=== PATIENT | female | born 1955 | race Caucasian/White ===

== ENCOUNTER → 2018-05-24 08:27 | Outpatient (CLI) | payer OTHER, SELFPAY ==
[2018-05-24 09:12] LABS: Add Manual Diff / Slide Review NO; Basophils Percent Auto 0.7 % (0-2); Eosinophils Percent Auto 2.1 % (2-4); Hematocrit 41.7 % (36-46); Lymphocytes Percent Auto 43.9 % (25-40); Mean Corpuscular HGB Conc 33.6 % (30-36); Mean Corpuscular Hemoglobin 31.5 PG (26-34); Mean Corpuscular Volume 93.8 fL (80-100); Neutrophils Absolute Auto 2100 /uL (3000-5900); Neutrophils Percent Auto 45.3 % (50-75); Platelet Count 286 X10^3/uL (150-400); Red Blood Cell Count 4.45 X10^6/uL (4.0-5.2); Red Cell Distribution Width 13.3 % (11.6-14.8); White Blood Cell Count 4.6 X10^3/uL (4.5-11.0)
[2018-05-24 09:29] LABS: Alanine Aminotransferase 27 IU/L (9-52); Albumin 4.6 g/dL (3.5-5.0); Albumin Globulin Ratio 1.4 (1.0-2.8); Alkaline Phosphatase 61 U/L (38-126); Aspartate Aminotransferase 29 IU/L (14-36); BUN Creatinine Ratio 16.7 (6-22); Bilirubin Total 0.9 mg/dL (0.2-1.3); Blood Urea Nitrogen 15 mg/dL (7-17); Calcium 9.5 mg/dL (8.4-10.2); Carbon Dioxide 30 mmol/L (22-32); Chloride 103 mmol/L (98-107); Cholesterol 222 mg/dL (140-199); Estimated Glomerular Filt Rate > 60.0 mL/min (>60); Globulin 3.3 g/dL (1.7-4.1); Glucose 89 mg/dL (80-110); HDL Cholesterol 85 mg/dL (40-60); HEMOLYSIS < 15 (0-50); LDL Cholesterol Calculated 119 mg/dL (<100); Potassium 5.1 mmol/L (3.4-5.1); Sodium 143 mmol/L (137-145); Total Protein 7.9 g/dL (6.3-8.2); Triglycerides 88 mg/dL (35-150)
[2018-05-24 10:19] LABS: Thyroid Stimulating Hormone 0.69 uIU/mL (0.47-4.68)
== END ==
PROVIDERS: Visit Provider Family Medicine
DX: Z00.00 Encounter for general adult medical examination without abnormal findings (principal); Z51.81 Encounter for therapeutic drug level monitoring
CPT/HCPCS: 36415; 80053; 80061; 84443; 85025

== ENCOUNTER → 2019-01-08 14:08 | Outpatient (CLI) | payer OTHER, SELFPAY | PROVIDERS: Visit Provider Internal Medicine | DX: R29.890 Loss of height (principal); Z78.0 Asymptomatic menopausal state; Z82.62 Family history of osteoporosis | CPT/HCPCS: 77080 ==

== ENCOUNTER → 2019-07-02 08:40 | Outpatient (CLI) | payer OTHER, SELFPAY ==
[2019-07-02 10:28] LABS: BUN Creatinine Ratio 21.3 (6-22); Blood Urea Nitrogen 17 mg/dL (7-17); Calcium 9.8 mg/dL (8.4-10.2); Carbon Dioxide 28 mmol/L (22-32); Chloride 103 mmol/L (98-107); Cholesterol 240 mg/dL (140-199); Estimated Glomerular Filt Rate > 60.0 mL/min (>60); Glucose 89 mg/dL (80-110); HDL Cholesterol 92 mg/dL (40-60); HEMOLYSIS < 15 (0-50); LDL Cholesterol Calculated 133 mg/dL (<100); Potassium 4.4 mmol/L (3.4-5.1); Sodium 139 mmol/L (137-145); Triglycerides 76 mg/dL (35-150)
[2019-07-02 10:46] LABS: Vitamin D 25 Hydroxy (D3) 33.1 ng/mL (30.0-100.0)
== END ==
PROVIDERS: Visit Provider Internal Medicine
DX: Z00.00 Encounter for general adult medical examination without abnormal findings (principal)
CPT/HCPCS: 36415; 80048; 80061; 82306

== ENCOUNTER → 2020-05-20 14:38 | Outpatient (CLI) | payer OTHER, SELFPAY ==
--- NOTE | 2020-05-20 14:43 | DI.RAD.S_ITS ---
PROCEDURE: XR LUMBAR SPINE MIN 4V INDICATIONS: lbp TECHNIQUE: 5 views of the lumbar spine were acquired. COMPARISON: [facility], CR, XR THORACIC SPINE 3V, 05/20/2020, 14:43. FINDINGS: Bones: 5 nonrib-bearing vertebrae are present. There is levo scoliotic bony alignment centered at the thoracolumbar junction, which currently measures 32.1 degrees and had measured 40.6 degrees during the analysis of the thoracolumbar sacral spine.. No vertebral body compression fractures. No suspicious bony lesions. Soft tissues: Overlying bowel gas pattern is normal. No suspicious soft tissue calcifications. Oblique images: No pars defects. IMPRESSION: Convex leftward scoliosis measures 32.1 degrees at time of this scanning. There is a moderate degree of degenerative disc disease extending through the entire lumbosacral spine with disc height reduction, and facet osteoarthritis that becomes progressively more prominent from L1 through S1, and is most pronounced at L4-5 and L5-S1. Significant spinal and foraminal stenosis likely is present from the middle through the lower thirds of the lumbosacral spine. Dictated by: Carlos Romero M.D. on 05/20/2020 at 15:27 Approved by: Carlos Romero M.D. on 05/20/2020 at 15:29
--- NOTE | 2020-05-20 14:43 | DI.RAD.S_ITS ---
PROCEDURE: XR THORACIC SPINE 3V INDICATIONS: lbp TECHNIQUE: 3 views of the thoracic spine were acquired. COMPARISON: [facility], CR, XR LUMBAR SPINE MIN 4V, 05/20/2020, 14:43. FINDINGS: Bones: No fractures or dislocations. Note is made of prominent convex leftward scoliosis centered at the thoracolumbar junction junction. Compensatory convex rightward scoliosis is less pronounced and centered at the middle 3rd of the thoracic spine. No suspicious bony lesions. Twelve pairs of ribs are noted, and appear intact where visualized. Convex leftward scoliosis at the thoracolumbar junction measures 40.6 degrees and convex rightward scoliosis at the middle 3rd of the thoracic spine measures 35.1 degrees Soft tissues: No paravertebral stripe thickening. IMPRESSION: Prominent scoliosis involving the thoracic and lumbosacral spine, most pronounced at the thoracolumbar junction. No acute trauma found. Dictated by: Carlos Romero M.D. on 05/20/2020 at 15:25 Approved by: Carlos Romero M.D. on 05/20/2020 at 15:27
== END ==
PROVIDERS: PCP Internal Medicine; Referring Provider Physical Medicine & Rehabilitation; Visit Provider Physical Medicine & Rehabilitation
DX: M51.26 Other intervertebral disc displacement, lumbar region (principal); M41.85 Other forms of scoliosis, thoracolumbar region; M51.36 Other intervertebral disc degeneration, lumbar region; M47.816 Spondylosis without myelopathy or radiculopathy, lumbar region; M47.817 Spondylosis without myelopathy or radiculopathy, lumbosacral region; M48.061 Spinal stenosis, lumbar region without neurogenic claudication; M48.07 Spinal stenosis, lumbosacral region
CPT/HCPCS: 72072; 72110

== ENCOUNTER → 2020-07-08 12:19 | Outpatient (CLI) | payer OTHER, SELFPAY ==
--- NOTE | 2020-07-08 12:21 | DI.MRI.S_ITS ---
PROCEDURE: MR LUMBAR SPINE WO CON INDICATIONS: scoliosis with radic TECHNIQUE: Noncontrast sagittal T1 spin echo and T2 fast echo, sagittal STIR, axial T1 and T2 fast spin echo through the lumbar spine. In cases with scoliosis, additional coronal T2 fast spin echo may be performed. COMPARISON: Outside Facility, RG, XR SCOLIO STUDY, 01/13/2012, 9:42. [facility], CR, XR LUMBAR SPINE MIN 4V, 05/20/2020, 14:43. [facility], MR, MR THORACIC SPINE WO CON, 07/08/2020, 12:54. [facility], MR, MR CERVICAL SPINE WO CON, 07/08/2020, 12:31. FINDINGS: Image quality: This examination is limited by involuntary motion artifact. Alignment and Curvature: There is moderate levoconvex thoracolumbar scoliosis seen. Bone Marrow: Marrow is of normal overall signal. No acute vertebral body compression fractures. Spinal Cord: Conus medullaris terminates at the L1 level. Visualized cord demonstrates normal signal and size. Paraspinous Soft Tissues: No paravertebral masses. T12-L1: Moderate loss of disc height is seen. Loss of disc signal is seen. Mild generalized disc bulge is seen. There is [id number] right-sided and minimal left-sided neural foraminal narrowing seen. No significant central canal narrowing is seen. L1-L2: Moderate loss of disc height is seen. Loss of disc signal is seen. Bridging endplate osteophytes are seen. Mild generalized disc bulge is seen. There is [id number] right-sided and minimal left-sided neural foraminal narrowing seen. The central canal is widely patent. L2-L3: Moderate to severe loss of disc height and disc signal is seen, which is more prominent on the right side than on the left. Mild facet joint hypertrophy is seen. Reactive marrow endplate changes are seen, which are hyperintense on T1-weighted and T2-weighted imaging and most consistent with fatty metaplasia (Modic type II changes). Bridging endplate osteophytes are seen. There is moderate left-sided and at least moderate right-sided neural foraminal narrowing seen. Mild central canal narrowing is seen. L3-L4: At least moderate loss of disc height and disc signal can be seen on the right side. Moderate generalized disc bulge is seen. Moderate to prominent facet hypertrophy is seen at this level. Moderate bilateral neural foraminal narrowing can be seen, left worse than right. Moderate central canal narrowing is seen. L4-L5: Moderate loss of disc height is seen. Loss of disc signal is seen. Mild to moderate disc bulge is seen. Moderate to prominent facet hypertrophy can be seen. There is moderate right-sided and moderate to severe left-sided neural foraminal narrowing seen. There is a mild degree of compression seen upon the exiting left L4 nerve root. Minimal central canal narrowing is seen. L5-S1: Moderate to severe loss of disc height and disc signal can be seen. Moderate disc bulge is seen, which is eccentric to the left side. Bridging endplate osteophytes are seen on the left. At least moderate facet hypertrophy is seen. There is moderate to severe left-sided neural foraminal narrowing, with associated mass effect upon the exiting left L5 nerve root. There is mild right-sided neural foraminal narrowing seen. No significant central canal narrowing is seen. IMPRESSION: Levoconvex thoracolumbar scoliosis with multiple levels of degenerative change. Dictated by: Raymundo London M.D. on 07/08/2020 at 14:59 Approved by: Raymundo London M.D. on 07/08/2020 at 15:05
--- NOTE | 2020-07-08 12:21 | DI.MRI.S_ITS ---
PROCEDURE: MR CERVICAL SPINE WO CON INDICATIONS: scoliosis with radic TECHNIQUE: Noncontrast sagittal T1 spin echo and T2 fast spin echo, sagittal STIR, foraminal oblique sagittal T2 fast spin echo, and axial gradient echo or T2 fast spin echo through the cervical spine. COMPARISON: None. FINDINGS: Image quality: Excellent. Alignment and Curvature: There is normal bony alignment. Bone Marrow: Marrow demonstrates normal overall signal. Spinal Cord: Visualized spinal cord has normal size and signal. No cerebellar tonsillar herniation. Paraspinous Soft Tissues: No paravertebral masses. Prevertebral soft tissues are normal in thickness. C2-C3: Normal appearance. C3-C4: Normal appearance. C4-C5: Slight loss of disc signal. Minimal, diffuse disc bulge. No central stenosis. No neural foraminal narrowing. No neural compression. C5-C6: Loss of disc signal and height. Mild, diffuse disc bulge. Mild narrowing of the central canal. No neural foraminal narrowing. No neural compression. C6-C7: Loss of disc signal and height. Mild, diffuse disc bulge. Mild narrowing of the central canal. No neural foraminal narrowing. No neural compression. C7-T1: Normal appearance. IMPRESSION: 1. Multilevel degenerative disease. 2. No significant central canal narrowing. 3. No neural foraminal narrowing. 4. No neural compression. Dictated by: Bianca Melendrez MD, PhD on 07/08/2020 at 14:46 Approved by: Bianca Melendrez MD, PhD on 07/08/2020 at 15:16
--- NOTE | 2020-07-08 12:21 | DI.MRI.S_ITS ---
PROCEDURE: MR THORACIC SPINE WO CON INDICATIONS: scoliosis with radic TECHNIQUE: Noncontrast sagittal T1 spine echo and T2 fast spin echo, sagittal STIR, axial T1 and T2 fast spin echo through the thoracic spine. COMPARISON: None. FINDINGS: Image quality: Excellent. Alignment and Curvature: There is 33 degree convex rightward scoliotic bony alignment, centered at the middle 3rd of the thoracic spine. There is compensatory convex leftward scoliosis centered at the area near the cervical thoracic junction and also the lumbosacral junction. The thoracic cord deviates leftward and rightward, respectively, within the thecal sac but no area significant spinal stenosis is associated. Bone Marrow: Marrow is of normal overall signal. No acute vertebral body compression fractures. Spinal Cord: Visualized spinal cord is normal in size and signal. Note is made of mild degenerative disc disease along the in word margin of the curvature at the areas of dextroscoliosis and levoscoliosis. Obstructive osseous hypertrophy is not associated. Facet osteoarthritis also appears similarly greater along the inner curvature of the mid thoracic spine and the inner curvature associated with the convex leftward scoliosis above and below Paraspinous Soft Tissues: No paravertebral masses. Miscellaneous: On axial images, central canal and foramina appear widely patent at all scanned levels. IMPRESSION: A disc herniation is not found. There is relatively prominent dextroscoliosis centered at the middle 3rd of the thoracic spine with compensatory levoscoliosis above and below. Expected deviation of the cervical cord within the thecal sac is present as a result. At additionally, inner curvature degenerative disc disease and facet osteoarthritis is present to a mild degree as a result. No definite spinal stenosis, probable mild foraminal stenosis is seen along the inner curvature in the areas dextroscoliosis and levoscoliosis. Dictated by: Carlos Romero M.D. on 07/08/2020 at 13:41 Approved by: Carlos Romero M.D. on 07/08/2020 at 13:45
== END ==
PROVIDERS: PCP Internal Medicine; Referring Provider Physical Medicine & Rehabilitation; Visit Provider Physical Medicine & Rehabilitation
DX: M50.122 Cervical disc disorder at C5-C6 level with radiculopathy (principal); M51.14 Intervertebral disc disorders with radiculopathy, thoracic region; M47.24 Other spondylosis with radiculopathy, thoracic region; M51.15 Intervertebral disc disorders with radiculopathy, thoracolumbar region; M51.16 Intervertebral disc disorders with radiculopathy, lumbar region; M41.85 Other forms of scoliosis, thoracolumbar region
CPT/HCPCS: 72141; 72146; 72148

== ENCOUNTER → 2020-09-17 09:15 | Outpatient (CLI) | payer OTHER, SELFPAY ==
[2020-09-17 12:54] LABS: Alanine Aminotransferase 22 IU/L (<35); Albumin 4.3 g/dL (3.5-5.0); Alkaline Phosphatase 74 U/L (38-126); Aspartate Aminotransferase 32 IU/L (14-36); BUN Creatinine Ratio 15.9 (6-22); Bilirubin Total 0.8 mg/dL (0.2-1.3); Blood Urea Nitrogen 13 mg/dL (7-17); Calcium 9.7 mg/dL (8.4-10.2); Carbon Dioxide 29 mmol/L (22-32); Chloride 103 mmol/L (98-107); Estimated Glomerular Filt Rate > 60.0 mL/min (>60); Globulin 3.3 g/dL (1.7-4.1); Glucose 97 mg/dL (80-110); Potassium 4.3 mmol/L (3.4-5.1); Sodium 137 mmol/L (137-145); Total Protein 7.6 g/dL (6.3-8.2)
[2020-09-17 12:55] LABS: Albumin Globulin Ratio 1.3 (1.0-2.8); Cholesterol 218 mg/dL (140-199); HDL Cholesterol 87 mg/dL (40-60); HEMOLYSIS < 15 (0-50); LDL Cholesterol Calculated 115 mg/dL (<100); Triglycerides 78 mg/dL (35-150)
== END ==
PROVIDERS: PCP Internal Medicine; Referring Provider Internal Medicine; Visit Provider Internal Medicine
DX: Z00.00 Encounter for general adult medical examination without abnormal findings (principal); E78.5 Hyperlipidemia, unspecified
CPT/HCPCS: 36415; 80053; 80061

== ENCOUNTER → 2020-11-02 15:49 | Outpatient (CLI) | payer OTHER, SELFPAY ==
[2020-11-02 18:12] LABS: COVID19 -Nasal RAPID Negative (Negative)
== END ==
PROVIDERS: PCP Internal Medicine; Visit Provider Physical Medicine & Rehabilitation
DX: Z20.822 Contact with and (suspected) exposure to COVID-19 (principal)
CPT/HCPCS: 87635; C9803

== ENCOUNTER 2020-11-03 10:37 | Outpatient (CLI) | payer OTHER, SELFPAY ==
[2020-11-03] VITALS (10 sets, daily range): BP systolic 108–149; BP diastolic 58–82; PULSE 45–60; RESP 11–22; TEMP 36.2; O2SAT 98–100
--- NOTE | 2020-11-03 10:39 | DI.RAD.S_ITS ---
PROCEDURE: PAIN L/S TRANSFORAMINAL INJECT INDICATIONS: SPONDYLOSIS COMPARISON: [facility], MR, MR LUMBAR SPINE WO CON, 07/08/2020, 13:25. FINDINGS: Fluoroscopic spot filming was performed to verify placement of a spinal needle at the L3-L4 level, as labeled on the films. Appropriate location of the needle tip was confirmed by injection of iodinated contrast. IMPRESSION: Intraprocedural examination within normal limits. Dictated by: Raymundo London M.D. on 11/03/2020 at 11:09 Approved by: Raymundo London M.D. on 11/03/2020 at 11:10
--- NOTE | 2020-11-03 11:17 | DI.RAD.S_ITS ---
PROCEDURE: XR KNEE LT 3V INDICATIONS: Left knee DJD. TECHNIQUE: 3 views of the knee were acquired. COMPARISON: None. FINDINGS: Bones: No fractures or dislocations. No suspicious bony lesions. Ligament anchors within the distal femur and proximal tibia are present. Moderate tricompartmental periarticular osteophyte formation. Soft tissues: No joint effusion. No suspicious soft tissue calcifications. IMPRESSION: 1. Postsurgical sequelae. 2. Osteoarthritis. 3. No acute fracture. No osseous lesion. If symptoms and/or clinical suspicion for pathology persist, further assessment with repeat, or advanced imaging (e.g., CT, MRI, or bone scan) may be helpful for further assessment. Dictated by: Pj Romo M.D. on 11/03/2020 at 16:33 Approved by: Pj Romo M.D. on 11/03/2020 at 16:33
[2020-11-03] MEDS: MIDAZOLAM 5 MG/5 ML VIAL IV (11:18)
[2020-11-03] MEDS: DEXAMETHASONE 10 MG/ML VIAL 20 MG INJ (11:22)
[2020-11-03] MEDS: BETAMETHASONE 30 MG/5 ML MDV 6 MG INJ (11:22)
[2020-11-03] MEDS: BUPIVACAINE 0.25% (PF) VIAL 2 ML INJ (11:22)
[2020-11-03] MEDS: IOPAMIDOL 15 ML VIAL 3 ML INJ (11:22)
[2020-11-03] MEDS: fentaNYL 100 MCG/2 ML INJ 50 MCG IV (11:24)
--- NOTE | 2020-11-03 12:11 | PC.NURSE ---
Patient felt steady on feet able to take few steps, left knee xray done.
--- NOTE | 2020-11-10 09:50 | P.PCN_ITS ---
Date/Time/Diagnoses Date of procedure: 11/03/20 Time of procedure: 11:30 Pre-procedure diagnosis: 1. FORAMINAL STENOSIS WITH LE SYMPTOMS Post-procedure diagnosis: same Procedure Notes Procedure: 1. FLUOROSCOPICALLY GUIDED CONTRAST CONTROLLED TRANSFORAMINAL EPIDURAL STEROID INJECTION - LEFT L3/4 TFESI Indications: Felicity is referred by Dr. Gomez for treatment of Foraminal Stenosis with left LE Symptoms Physician: Sandro Valenzuela Total Fluoroscopy time (seconds): 8 Total sedation minutes: 10 Complications: none Procedure in detail & Post-procedure care: FINDINGS Foraminal Nerve Root Compression secondary to disc disease and facet hypertrophy DESCRIPTION OF PROCEDURE Following review of allergy and review of potential side effects and complications, including, but not necessarily limited to, infection, allergic reaction, local tissue breakdown, stroke, temporary or permanent nerve injury, paralysis, and possible , the patient indicated that the patient understood and agreed to proceed. An informed consent document was signed by the patient, witnessed by a nurse, and placed in the patient's chart. Additionally, other treatment options including medications, modalities, and physical therapy were reviewed with the patient. After review of previous anaesthesic history and IV conscious sedation the patient was deemed safe to proceed with today?s procedure with IV conscious sedation as ASA class II designation. Safety time-out was performed to confirm patient ID, procedure to be performed and site of procedure. IV sedation was accomplished with a combination of 2mg of Versed and 50mcg of Fentanyl was administered by the RN after DO order, titrated to patient comfort during the course of the procedure while the patient remained responsive to all verbal commands In the prone position following sterile prep and drape of the lumbar region, the left L3/4 posterior neuroforamen was identified fluoroscopically. The skin was anesthetized via a 25-gauge 1.5-inch needle with 1% lidocaine solution. At this point, a 25-gauge 3.5-inch spinal needle was atraumatically introduced and advanced under fluoroscopic guidance through the posterior left L3/4 neurofora men to approximately the anterior aspect of the canal. Depth was confirmed on lateral view. Following negative aspiration, injection of approximately 1.5 cc of Isovue 200 under live fluoroscopy in the AP view confirmed excellent flow along the nerve root, into the epidural space without vascular or intrathecal uptake observed Radiological data, including multiple fluoroscopic views of the lumbosacral spine, reveal a spinal needle at the left L3/4 posterior neuroforamen. Subsequent views show flow of contrast material flowing superiorly and inferiorly along the nerve root confirming epidural flow. Subsequently, a test dose of 1.5cc of 1% lidocaine solution was administered and patient was observed for two minutes for signs or symptoms of complications, including abdominal pain, shortness of breath, bilateral upper or lower extremity weakness, nausea and vomiting, prior to steroid injection. At this point, a total of 3cc or 20mg of dexamethasone and 6mg betamethasone was inject ed without incident. The patient tolerated the procedure well without signs or symptoms of complications prior to transfer to the recovery area continued monitoring without incident. The patient was then transferred to the recovery area where they were observed for an appropriate time after the injection. The patient reported a VAS score of 7 prior to the procedure and a post-procedure VAS of 0. POST OP INSTRUCTIONS The patient was provided a Pain Log to continue to record their response to the target-specific procedure prior to follow-up visit with their referring physician. Additionally, specific post-injection care instructions and a contact number to our office were provided if concerns arise regarding possible complications associated with the procedure are suspected.
== END 2020-11-03 12:12 | disposition home or self-care (01) ==
PROVIDERS: PCP Internal Medicine; Referring Provider Physical Medicine & Rehabilitation; Visit Provider Physical Medicine & Rehabilitation
DX: M48.061 Spinal stenosis, lumbar region without neurogenic claudication (principal); M51.16 Intervertebral disc disorders with radiculopathy, lumbar region
CPT/HCPCS: 64483; 73562; 99152; J0702; J1100; J2250; J3010

== ENCOUNTER → 2021-02-02 09:30 | Outpatient (CLI) | payer OTHER, SELFPAY ==
[2021-02-02 13:31] LABS: COVID19 -Nasal RAPID Negative (Negative)
== END ==
PROVIDERS: PCP Internal Medicine; Visit Provider Physical Medicine & Rehabilitation
DX: Z20.822 Contact with and (suspected) exposure to COVID-19 (principal)
CPT/HCPCS: 87635; C9803

== ENCOUNTER 2021-02-04 13:00 | Outpatient (CLI) | payer OTHER, SELFPAY ==
--- NOTE | 2021-02-04 13:01 | DI.RAD.S_ITS ---
PROCEDURE: PAIN L INTERLAMINAR/CAUDAL INJ INDICATIONS: SPONDYLOSIS COMPARISON: None. FINDINGS: Fluoroscopic spot filming was performed to verify placement of spinal needles at the L3-L4 level(s), as labeled on the films. Appropriate location(s) of the needle tip(s) was confirmed by injection of iodinated contrast. Dictated by: Holger Perez M.D. on 02/04/2021 at 14:52 Approved by: Holger Perez M.D. on 02/04/2021 at 14:52
[2021-02-04 13:13] VITALS: BP 131/73; PULSE 67; RESP 16; TEMP 36.6; O2SAT 100
[2021-02-04 13:50] VITALS: BP 148/70; PULSE 54; RESP 12; O2SAT 100
[2021-02-04] MEDS: MIDAZOLAM 5 MG/5 ML VIAL IV (13:50)
[2021-02-04] MEDS: DEXAMETHASONE 10 MG/ML VIAL 20 MG INJ (13:52)
[2021-02-04] MEDS: BETAMETHASONE 30 MG/5 ML MDV 6 MG INJ (13:53)
[2021-02-04] MEDS: IOPAMIDOL 15 ML VIAL 3 ML INJ (13:53)
[2021-02-04] MEDS: BUPIVACAINE 0.25% (PF) VIAL 30 ML INJ (13:54)
[2021-02-04 13:55] VITALS: BP 122/66; PULSE 52; RESP 10; O2SAT 100
--- NOTE | 2021-02-04 14:02 | P.PCN_ITS ---
Date/Time/Diagnoses Date of procedure: 02/04/21 Time of procedure: 14:02 Pre-procedure diagnosis: 1. HNP WITH RADICULAR FEATURES, 2. MULTILEVEL CENTRAL STENOSIS, Post-procedure diagnosis: same Procedure Notes Procedure: 1. FLUOROSCOPICALLY GUIDED CONTRAST CONTROLLED INTERLAMINAR EPIDURAL STEROID INJECTION - L3/4 Indications: Felicity is referred by Dr. Gomez for treatment of Bilateral Foraminal Stenosis L>R LE symptoms. Physician: Sandro Valenzuela Total Fluoroscopy time (seconds): 7 Total sedation minutes: 7 Complications: none Procedure in detail & Post-procedure care: FINDINGS Multilevel Central Spinal Stenosis with Nerve Root Compression DESCRIPTION OF PROCEDURE Fluoroscopically guided, contrast-controlled L3/4 translaminar epidural steroid injection. Following review of allergy and review of potential side effects and complications, including, but not necessarily limited to, infection, allergic reaction, local tissue breakdown, temporary as well as permanent nerve injury, paralysis, stroke and possible , the patient indicated that the patient understood and agreed to proceed. An informed consent document was signed by the patient, witnessed by a nurse, and placed in the patient's chart. Additionally, other treatment options including modalities, medications, and physical therapy were reviewed with the patient. After review of previous anaesthesic history and IV conscious sedation the patient was deemed safe to proceed with today?s procedure with IV conscious sedation as ASA class II designation. Safety time-out was performed to confirm patient ID, procedure to be performed and site of procedure. IV sedation was accomplished with a combination of 2mg of Versed was administered by the RN after DO order, titrated to patient comfort during the course of the procedure while the patient remained responsive to all verbal commands. In the prone position, following sterile prep and drape of the lumbar region, the L3/4 translaminar space was identified fluoroscopically. The skin was anesthetized via a 25-gauge, 1.5-inch needle with 1% lidocaine solution. At this point, a 22-gauge short bevel spinal needle was atraumatically introduced and advanced under fluoroscopic guidance into the region of the L3/4 translaminar space. Depth was confirmed on lateral view. Radiological data, including multiple fluoroscopic views of the lumbar spine, reveal a spinal needle at the L3/4 translaminar space. Lateral views then show placement of the needle in the epidural space. Subsequent views show contrast material flowing superiorly and inferiorly in the epidural space. No vascular or intrathecal uptake is observed. At this point, using loss of resistance technique with saline and air, the epidural space was entered. This was confirmed following negative aspiration with injection of approximately 1.5 cc of Isovue 200, showing excellent epidural flow without vascular or intrathecal uptake. At this point, 1cc of 1% lidocaine solution combined with 3cc or 20mg of dexamethasone and 6mg of betamethasone was injected without incident. The patient tolerated the procedure well without signs or symptoms of complications prior to transfer to the recovery area continued monitoring without incident. The patient was then transferred to the recovery area where they were observed for an appropriate period of time after the injection. The patient reported a VAS score of 6 prior to the procedure and a post- procedure VAS of 0. POST OP INSTRUCTIONS The patient was provided a Pain Log to continue to record their response to the target-specific procedure prior to follow-up visit with their referring physician. Additionally, specific post-injection care instructions and a contact number to our office were provided if concerns arise regarding possible complications associated with the procedure are suspected.
[2021-02-04 14:05] VITALS: BP 126/59; PULSE 52; RESP 16; O2SAT 95
[2021-02-04 14:10] VITALS: BP 132/63; PULSE 53; RESP 16; O2SAT 100
[2021-02-04 14:15] VITALS: BP 124/67; PULSE 55; RESP 16; O2SAT 100
== END 2021-02-04 14:17 | disposition home or self-care (01) ==
LOC: RAD 13:01
PROVIDERS: PCP Internal Medicine; Referring Provider Physical Medicine & Rehabilitation; Visit Provider Physical Medicine & Rehabilitation
DX: M51.16 Intervertebral disc disorders with radiculopathy, lumbar region (principal); M48.061 Spinal stenosis, lumbar region without neurogenic claudication
CPT/HCPCS: 62323; J0702; J1100; J2250

== ENCOUNTER → 2021-05-11 09:45 | Outpatient (CLI) | payer OTHER, SELFPAY ==
[2021-05-11 12:06] LABS: COVID19 -Nasal RAPID Negative (Negative)
== END ==
PROVIDERS: PCP Internal Medicine; Visit Provider Physical Medicine & Rehabilitation
DX: Z20.822 Contact with and (suspected) exposure to COVID-19 (principal)
CPT/HCPCS: 87635; C9803

== ENCOUNTER 2021-05-13 09:18 | Outpatient (CLI) | payer OTHER, SELFPAY ==
[2021-05-13] VITALS (7 sets, daily range): BP systolic 111–140; BP diastolic 61–75; PULSE 54–60; RESP 10–20; TEMP 36.3–36.5; O2SAT 93–100
--- NOTE | 2021-05-13 09:19 | DI.RAD.S_ITS ---
PROCEDURE: PAIN L/SI FACET INJ/BLK 1STL INDICATIONS: SPONDYLOSIS COMPARISON: None. FINDINGS: Fluoroscopic spot filming was performed to verify placement of spinal needles at the left side of L3-4, L4-5 and L5-S1 level(s), as labeled on the films. Appropriate location(s) of the needle tip(s) was confirmed by injection of iodinated contrast. IMPRESSION: Fluoro guidance was provided intraoperatively for left-sided L3-4 through L5-S1 facet injection performed by the ordering physician. Dictated by: Bautista Pal M.D. on 05/13/2021 at 10:50 Approved by: Bautista Pal M.D. on 05/13/2021 at 10:56
[2021-05-13] MEDS: MIDAZOLAM 5 MG/5 ML VIAL IV (10:08)
--- NOTE | 2021-05-13 10:19 | P.PCN_ITS ---
Date/Time/Diagnoses Date of procedure: 05/13/21 Time of procedure: 10:20 Pre-procedure diagnosis: 1. FACET ARTHROPATHY, 2. AXIAL LBP, 3. MULTILEVEL DDD Post-procedure diagnosis: same Procedure Notes Procedure: 1. FLUOROSCOPICALLY GUIDED CONTRAST CONTROLLED FACET JOINT INJECTIONS LEFT L3/4, L4/5, L5/S1 Indications: Felicity is referred by Dr. Gomez for treatment of Axial LBP Physician: Sandro Valenzuela Total Fluoroscopy time (seconds): 5 Total sedation minutes: 7 Complications: none Procedure in detail & Post-procedure care: FINDINGS Multilevel Facet Arthropathy with Clinically significant axial LBP DESCRIPTION OF PROCEDURE Fluoroscopically guided, contrast-controlled left L3/4, L4/5, L5/S1 facet joint injections. Following review of allergy and review of potential side effects and complications, including, but not necessarily limited to, infection, allergic reaction, local tissue breakdown, stroke, temporary or permanent nerve injury, paralysis, and possible , the patient indicated that the patient understood and agreed to proceed. An informed consent document was signed by the patient, witnessed by a nurse, and placed in the patient's chart. Additionally, other treatment options including medications, modalities, and physical therapy were reviewed with the patient. After review of previous anaesthesic history and IV conscious sedation the patient was deemed safe to proceed with today?s procedure with IV conscious sedation as ASA class II designation. Safety time-out was performed to confirm patient ID, procedure to be performed and site of procedure. IV sedation was accomplished with a combination of 2mg of Versed and 50mcg of Fentanylwas administered by the RN after DO order, titrated to patient comfort during the course of the procedure while the patient remained responsive to all verbal commands. In the prone position, following sterile prep and drape of the lumbar region, the posterior aspect of the left L3/4, L4/5, L5/S1 facet joints were identified fluoroscopically. The skin was anesthetized via a 25-gauge 1.5-inch needle with 1% lidocaine solution into the corresponding facet joints. At this point, a 22- gauge 3.5-inch spinal needle was atraumatically introduced and advanced under fluoroscopic guidance into the corresponding facet joints. Following negative aspiration, injections of approximately 0.2-cc of Isovue 200 confirmed interarticular placement without vascular uptake. Radiological data, including multiple fluoroscopic views of the lumbosacral spine, reveal a spinal needle at the left L3/4, L4/5, L5/S1 facet joints. Subsequent views show flow of contrast material both superiorly and inferiorly within the joint space without vascular or intrathecal uptake. At this point, a total of 0.5cc including a mixture of 0.25cc Marcaine and 0.25cc betamethasone was injected without complication into each of the corresponding facet joints. The procedure tolerated the procedure well without signs or symptoms of complications prior to transfer to the recovery area continued monitoring without incident. The patient was then transferred to the recovery area where they were observed for an appropriate period of time after the injection. The patient reported a VAS score of 7 prior to the procedure and a post-procedure VAS of 0. POST OP INSTRUCTIONS The patient was provided a Pain Log to continue to record their response to the target-specific procedure prior to follow-up visit with their referring physician. Additionally, specific post-injection care instructions and a contact number to our office were provided if concerns arise regarding possible complications associated with the procedure are suspected.
[2021-05-13] MEDS: BUPIVACAINE 0.5% (PF) VIAL 5 ML INJ (10:30)
[2021-05-13] MEDS: IOPAMIDOL 15 ML VIAL 3 ML INJ (10:30)
[2021-05-13] MEDS: BETAMETHASONE 30 MG/5 ML MDV 12 MG INJ (10:31)
== END 2021-05-13 10:38 | disposition home or self-care (01) ==
LOC: RAD 09:19
PROVIDERS: PCP Internal Medicine; Referring Provider Physical Medicine & Rehabilitation; Visit Provider Physical Medicine & Rehabilitation
DX: M47.816 Spondylosis without myelopathy or radiculopathy, lumbar region (principal); M47.817 Spondylosis without myelopathy or radiculopathy, lumbosacral region; M51.36 Other intervertebral disc degeneration, lumbar region; M51.37 Other intervertebral disc degeneration, lumbosacral region; M54.5 Low back pain
CPT/HCPCS: 64493; 64494; 64495; J0702; J2250; J3010

== ENCOUNTER → 2021-12-22 12:35 | Outpatient (CLI) | payer OTHER, SELFPAY ==
[2021-12-22 16:54] LABS: COVID19 -Nasal RAPID Negative (Negative)
== END ==
PROVIDERS: PCP Internal Medicine; Visit Provider Obstetrics & Gynecology
DX: Z20.822 Contact with and (suspected) exposure to COVID-19 (principal); Z01.812 Encounter for preprocedural laboratory examination
CPT/HCPCS: 87635

== ENCOUNTER 2021-12-23 08:17 | Day surgery (SDC) | payer OTHER, SELFPAY ==
[2021-12-20 10:46] VITALS: BMI 23.6
--- NOTE | 2021-12-23 | PATH_ITS ---
[facility] Accession Number: [id number] . 01 Material submitted: . PART A: body - CALCIFIED AREA PART B: endometrium - ENDOMETRIAL CURETTINGS . 02 Diagnosis: A. Calcified Area: Dystrophic calcifications and scant, detached glandular elements with features of benign eosinophilic metaplasia, nonspecific. No evidence of glandular hyperplasia or malignancy. . B. Endometrial Curettings: Portions of weakly proliferative endometrium with patchy regions of stromal breakdown and strips of endometrial glandular epithelium; negative for glandular hyperplasia, cytologic atypia, or malignancy. V 12/28/2021 1336 Local . 02 Electronically signed: . Mai Stinson MD, Pathologist NPI- [id number] . 01 Gross description: . A. Received in formalin and labeled with the patient's name designated calcified area is a 0.6 x 0.5 x 0.1 cm aggregate of yellow-cancino and brown calcified tissue, entirely submitted in A1 following decalcification. B. Received in formalin and labeled with the patient's name designated endometrial curettings is a 1.5 x 0.5 x 0.2 cm aggregate of red-cancino hemorrhagic tissue fragments and mucoid debris, entirely submitted in B1. (CHRISTINA:[id number]) /[facility] 12/24/2021 1602 Local . 02 Pathologist provided ICD-10: N84.0, N95.0 . 02 CPT . 914181 Specimen Comment: A courtesy copy of this report has been sent to [phone] Performed at: 01 [facility] [address] [facility], [place], [place] [id number] MD Silverio Osborn MD Phone: [phone] Performed at: 02 [facility] [id number] [place] [id number] MD Radha Golden MD Phone: [phone]
--- NOTE | 2021-12-23 08:04 | PM.HP.1 ---
History of Present Illness History of Present Illness Date Patient Seen: 12/23/21 Time Patient Seen: 10:19 Chief complaint: SDC Narrative: Patient is a 66-year-old 3 para 2 who presents for a D&C hysteroscopy with polypectomy and endometrial ablation due to an endometrial polyp and postmenopausal bleeding. Patient History Medical History Astigmatism of right eye Cervical radiculopathy Cervical spine disease (~1971) Chicken pox (~1957) Chronic back pain (~2014) Chronic meniscal tear of knee Colon polyps (~2018) Facet arthropathy, lumbar Fractures Genital warts (~1989) Hearing loss (~06/2016) Heavy menstrual period Hemorrhoid Herniated nucleus pulposus, lumbar Herpes (~1967) History of chicken pox History of recurrent ear infection Irregular menstrual cycle Lumbar radiculopathy Measles Mumps Painful menstrual periods Ruptured tympanic membrane (~1971) Scoliosis (~1971) Scoliosis of thoracolumbar region due to degenerative disease of spine in adult Tinnitus (~2015) Vertigo (~2013) Surgical History H/O knee surgery (~10/2014) History of repair of ACL (~12/1987) History of selective injection of anesthetic agent around lumbar nerve root (~11/08/20) Surgical procedure planned (~07/1987) Family & Social History Family History Father Hypertension Alzheimer's dementia Family history of thyroid problem Liver problem Prostate cancer Diabetes mellitus History of heart disease Mother Breast CA Heart murmur Family history of thyroid problem Grandfather Cancer Grandmother Stroke Grandfather History of heart disease Grandmother Breast CA Family/Other DCIS (ductal carcinoma in situ) Family/Other Breast CA Social History: household members spouse other skiing, boating, cycling, reading Tobacco & Substance use: Smoking Status Never smoker alcohol intake current Meds Home Medications and Allergies Home Medications Medication Instructions Recorded Confirmed Type celecoxib 200 mg capsule (Celebrex) 200 mg PO DAILY #30 cap 05/03/21 12/23/21 Rx Allergies Allergy/AdvReac Type Severity Reaction Status Date / Time meperidine [From Demerol] AdvReac Intermediate vomiting Verified 08/23/21 13:09 Opioids - Morphine Analogues AdvReac Intermediate vomiting Verified 08/23/21 13:09 Exam Narrative Exam Narrative: HEENT: No thyromegaly, no anterior cervical or supraclavicular lymphadenopathy. Lungs:Clear to auscultation bilaterally, no wheezes. Cardiovascular: Regular rate and rhythm, no murmurs, rubs, or gallops. Abdomen: No scars. No hepatosplenomegaly. No masses palpable. External genitalia: Normal Vagina: Normal Cervix: Normal Bimanual exam: 6 Week size anteverted uterus. Mobile. Extremities: No edema Assessment & Plan Assessment & Plan narrative: Assessment: 66-year-old 3 para 2 with postmenopausal bleeding and an endometrial polyp Plan: D&C hysteroscopy, polypectomy, and NovaSure endometrial ablation The risks, benefits, and alternatives to the procedure were explained to the patient. The risks including bleeding, infection, and uterine perforation. She understands these risks and agrees to proceed. A full par Q was held and consent form was signed. COVID-19 COVID-19 status: Negative Result date/Date tested (Pos, Neg/Pending): 12/22/21 Time Spent With Patient Time with patient: less than 30 minutes Critical Care time: I spent a total of [] minutes of critical care time on this patient's care today; this time is exclusive of procedural time.
--- NOTE | 2021-12-23 08:10 | PM.PREOP ---
Pre-operative Note COVID-19 COVID-19 status: Negative Result date/Date tested (Pos, Neg/Pending): 12/22/21 Criteria for continued procedure: Deterioration of the patient's condition or overall health Interval Note History & Physical reviewed/Exam performed by Physician: Yes Changes to H&P: No H&P completed within 30 days and has changed as indicated here:: 12/23/21
[2021-12-23] MEDS: ACETAMINOPHEN 325 MG TABLET 975 MG PO (08:42)
[2021-12-23 08:51] VITALS: BP 123/75; PULSE 58; RESP 16; TEMP 36.3; O2SAT 100; BMI 22.4
[2021-12-23] MEDS: LACTATED RINGERS 1,000 ML 42 ML IV ×2 (10:00→11:27)
--- NOTE | 2021-12-23 11:04 | PM.GYNOP.1 ---
Operative Date/Time/Diagnoses Date of procedure: 12/23/21 Time of procedure: 11:04 Pre-op diagnosis: Postmenopausal bleeding Endometrial polyp by ultrasound Post-op diagnosis: same Procedure & Clinicians Procedure: Procedures Operation Date: 12/23/21 09:45 Actual Procedure Side Surgeon p Hysteroscopy D&C, endometrial ablation, removal of endometrial calcification Amalia Rodney MD Indications: Postmenopausal bleeding Endometrial polyp by ultrasound Surgeon: Amalia Rodney Anesthesia Type: General (LMA) Operative Notes Findings: 6 week size anteverted uterus Both fallopian tube ostia observed Slightly thickened endometrial lining at the fundus Towards the right fallopian tube ostia there was a flat pedunculated calcified piece of tissue Closure Type: not applicable Specimen(s): endometrial curettings (And calcified tissue) Estimated blood loss (mL): 5 Blood products transfused: none Procedure in detail: After informed consent was obtained, the patient was taken to the operating room where she was placed in the dorsal supine position. After adequate LMA general anesthesia was achieved, she was placed in the dorsal lithotomy position, and prepped and draped in the usual sterile fashion. A time-out was performed. A bivalve speculum was placed into the vagina and the anterior lip of the cervix was grasped with a single-tooth tenaculum. The cervical os was sequentially dilated to the # 8 Hegar dilator. The hysteroscope passed easily into the endometrial cavity. Initial inspection of the endometrial cavity revealed both fallopian tube ostia. Towards the right fallopian tube ostia there was a flat pedunculated piece of calcified tissue. The hysteroscope was removed. Polyp forceps were used to grasp the calcified tissue. This was sent to pathology. Sharp curettage was performed yielding a moderate amount of endometrial curettings. The uterus was measured from the internal os to the fundus and measured 4 cm. This was set on the NovaSure generator. NovaSure catheter passed easily into the endometrial cavity and was opened. The width was 3.1 cm. This indicated a power of 68 w. The cervix was capped, the cavity assessment was performed and passed. The cycle was initiated and lasted 42 seconds. At the completion of the cycle, the NovaSure catheter was closed and removed from the uterus. The single-tooth tenaculum was removed from the anterior lip of the cervix. The bivalve speculum was removed from the vagina. Sponge, lap, and instrument counts were correct x2. Patient tolerated the procedure well, and was taken to PACU in stable condition. Complications: none Post-operative Condition: stable Disposition: PACU Plan for aftercare: Home after recovery
[2021-12-23 11:10] VITALS: BP 118/56; PULSE 63; RESP 10; TEMP 36.3; O2SAT 100
--- NOTE | 2021-12-23 11:13 | SUR.OPER ---
Lithotomy on padded OR bed, head on pillow, arms secured on padded arm boards at <90 degrees abduction. Legs secured in padded yellow fins stirrups.
[2021-12-23 11:14] VITALS: BP 113/61; PULSE 57; RESP 11; O2SAT 97
[2021-12-23 11:19] VITALS: BP 114/61; PULSE 56; RESP 11; O2SAT 100
[2021-12-23 11:25] VITALS: BP 124/49; PULSE 57; RESP 11; O2SAT 100
[2021-12-23 11:33] VITALS: BP 120/75; PULSE 57; RESP 11; TEMP 36.4; O2SAT 98
--- NOTE | 2021-12-23 11:43 | SUR.PHASEII ---
discharge instructions reviewed with pt and she verbalized understanding.
== END 2021-12-23 11:56 | disposition home or self-care (01) ==
PROVIDERS: PCP Internal Medicine; Referring Provider Obstetrics & Gynecology; Visit Provider Obstetrics & Gynecology
PROC: 0UDB8ZZ Extraction of Endometrium, Via Natural or Artificial Opening Endoscopic (ICD-10-PCS; CPT 58558; principal; 2021-12-23 09:45)
DX: N95.0 Postmenopausal bleeding (principal); M41.9 Scoliosis, unspecified; N85.8 Other specified noninflammatory disorders of uterus
CPT/HCPCS: 58563; J1100; J1885; J2405; J2704; J3010

== ENCOUNTER → 2022-10-13 09:10 | Outpatient (CLI) | payer MEDICARE, OTHER, SELFPAY ==
[2022-10-13 11:50] LABS: Hematocrit 40.8 % (36-46); Hemoglobin 13.8 g/dL (12.0-16.0); Mean Corpuscular HGB Conc 33.9 % (30-36); Mean Corpuscular Hemoglobin 31.4 PG (26-34); Mean Corpuscular Volume 92.7 fL (80-100); Platelet Count 248 X10^3/uL (150-400); Red Cell Distribution Width 13.9 % (11.6-14.8); White Blood Cell Count 3.5 X10^3/uL (4.5-11.0)
[2022-10-13 11:52] LABS: Alanine Aminotransferase 29 IU/L (<35); Albumin 4.3 g/dL (3.5-5.0); Albumin Globulin Ratio 1.3 (1.0-2.8); Alkaline Phosphatase 64 U/L (38-126); Aspartate Aminotransferase 33 IU/L (14-36); BUN Creatinine Ratio 18.9 (6-22); Bilirubin Total 0.9 mg/dL (0.2-1.3); Blood Urea Nitrogen 14 mg/dL (7-17); Carbon Dioxide 25 mmol/L (22-32); Chloride 106 mmol/L (98-107); Cholesterol 209 mg/dL (140-199); Estimated Glomerular Filt Rate > 60 mL/min (>60); Globulin 3.3 g/dL (1.7-4.1); Glucose 85 mg/dL (80-110); HDL Cholesterol 73 mg/dL (40-60); HEMOLYSIS < 15 (0-50); LDL Cholesterol Calculated 121 mg/dL (<100); Potassium 4.2 mmol/L (3.4-5.1); Sodium 138 mmol/L (137-145); Total Protein 7.6 g/dL (6.3-8.2); Triglycerides 76 mg/dL (35-150)
[2022-10-13 17:14] LABS: HIV 1 & 2 Ab/Ag 4th Gen Combo NEGATIVE (NEGATIVE); Hep C Virus Ab w/Reflex Quant NEGATIVE s/c (NEGATIVE)
== END ==
PROVIDERS: PCP Family Medicine; Referring Provider Family Medicine; Visit Provider Family Medicine
DX: R94.31 Abnormal electrocardiogram [ECG] [EKG] (principal); Z11.4 Encounter for screening for human immunodeficiency virus [HIV]; Z13.228 Encounter for screening for other metabolic disorders; Z13.220 Encounter for screening for lipoid disorders; N95.1 Menopausal and female climacteric states; Z11.59 Encounter for screening for other viral diseases
CPT/HCPCS: 36415; 80053; 80061; 85027; 86803; 87389; 93005

== ENCOUNTER → 2023-08-31 09:27 | Outpatient (CLI) | payer MEDICARE, OTHER, SELFPAY ==
--- NOTE | 2023-08-31 09:29 | DI.RAD.S_ITS ---
PROCEDURE: XR FINGER LT MIN 2V INDICATIONS: Hx of injury 1 year ago, diff w/grasping, weakness MCP TECHNIQUE: AP hand, 2 views of the 1st finger(s) acquired. COMPARISON: None. FINDINGS: Bones: No fractures or dislocations. No suspicious bony lesions. Soft tissues: No suspicious soft tissue calcifications. IMPRESSION: 1. No definite radiographic abnormality. If pain persists with conservative management, consider cross sectional imaging such as CT or MRI for further assessment. Dictated by: Ruben KIRBY Interpreted: Dale Barksdale MD on 08/31/2023 at 10:06 Transcribed by: ALEXIS on 08/31/2023 at 10:07 Approved by: Dale Barksdale M.D. on 09/15/2023 at 17:03
== END ==
LOC: RAD 09:28
PROVIDERS: PCP Family Medicine; Referring Provider Physician Assistant; Visit Provider Physician Assistant
DX: S63.642A Sprain of metacarpophalangeal joint of left thumb, initial encounter (principal); X58.XXXA Exposure to other specified factors, initial encounter
CPT/HCPCS: 73140

== ENCOUNTER → 2023-09-08 13:49 | Outpatient (CLI) | payer MEDICARE, OTHER, SELFPAY ==
--- NOTE | 2023-09-08 14:00 | DI.MRI.S_ITS ---
PROCEDURE: MR HAND LT WO CON INDICATIONS: Left thumb pain and weakness; injury one year ago TECHNIQUE: Noncontrast oblique coronal T1 spin echo and T2 fast spin echo with fat saturation, axial and sagittal T2 fast spin echo with fat saturation, through the thumb. COMPARISON: None. FINDINGS: Image quality: Excellent. Bones: The bones are normally aligned, without marrow contusions or fractures. Hprm-ks-yedjirxp osteoarthritic changes are noted throughout left thumb more notably at 1st MCP joint with joint space narrowing and subchondral sclerosis. No intra-osseous lesions. First carpometacarpal joint: On sagittal images, the dorsal radial ligament and posterior oblique ligament appear intact. The intermetacarpal ligament between the 1st and 2nd metacarpal bases also appears intact. On the volar aspect, the deep and superficial layers of the anterior oblique ligament appear intact. First metacarpophalangeal joint: The proper and accessory components of the radial collateral ligament appears attenuated with surrounding soft tissue edema and intrasubstance T2 hyperintense signal. Mild edema is also noted within the overlying fibers of the abductor pollicis brevis tendon. The proper and accessory components of the ulnar collateral ligaments appear intact, along with overlying fibers of the adductor pollicis muscle. The aponeurosis of the adductor pollicis muscle also appears normal. The volar plate appears intact on sagittal images, situated between the radial and ulnar sesamoids. Thenar muscles: There is edema within the abductor pollicis brevis muscle at the level of 1st metacarpal base with suggestion of low-grade partial-thickness tear involving abductor pollicis brevis tendon at its insertion on 1st proximal phalangeal base extending to musculotendinous junction. Mild edema within the opponens pollicis muscle is also seen at the level of 1st metacarpal shaft. The flexor pollicis brevis muscle appears normal, with tendon inserting on the radial sesamoid and first proximal phalanx. The oblique and transverse heads of the adductor pollicis muscle appear normal, inserting on the ulnar sesamoid and proximal phalanx as part of the adductor aponeurosis. Flexor pollicis longus tendon: Tendon fibers appear intact, coursing between the thenar eminence muscles and the adductor pollicis muscle, and inserting on the volar base of the distal phalanx. The first annular jamie at the level of the first MCP joint appears intact, intimate with the sesamoids. The second annular jamie at the level of interphalangeal joint also appears intact. The oblique annular jamie between the 1st and 2nd annular pulleys appears intact, with ulnar proximal attachment intimate with the adductor aponeurosis. The variable annular jamie also appears intact between the first annular and oblique annular pulleys. Extensor tendons: The extensor pollicis brevis tendon appears intact, coursing radial to the extensor pollicis longus tendon and inserting on the dorsal base of the proximal phalanx, blending with the dorsal plate of the first MCP joint. The extensor pollicis longus tendon appears intact as it inserts on the dorsal base of the distal phalanx. The sagittal band at the level of the first MCP joint appears intact. The abductor pollicis longus tendon slips appear intact at the radial aspect of the proximal phalanx, proximal to the abductor pollicis brevis tendon insertion. Miscellaneous: No ganglion cysts. IMPRESSION: 1. Dvum-kf-ennnjsjv osteoarthritic changes throughout left thumb as described above. No marrow edema. No fracture or dislocation. 2. Low to moderate grade partial-thickness tear involving radial collateral ligaments of 1st MCP joint. The ulnar collateral ligaments are intact. 3. Low-grade partial-thickness tear involving abductor pollicis brevis tendon at its insertion on 1st proximal phalangeal base extending to musculotendinous junction with suggestion of low-grade strain/intrasubstance partial-thickness tear involving abductor pollicis brevis muscle and underlying opponens pollicis muscle at the level of 1st metacarpal shaft. No other muscle or tendon signal abnormality is seen. Dictated by: Bautista Pal M.D. on 09/08/2023 at 16:27 Approved by: Bautista Pal M.D. on 09/08/2023 at 17:14
== END ==
LOC: MRI 13:50
PROVIDERS: PCP Family Medicine; Referring Provider Physician Assistant; Visit Provider Physician Assistant
DX: S63.642A Sprain of metacarpophalangeal joint of left thumb, initial encounter (principal); S66.812A Strain of other specified muscles, fascia and tendons at wrist and hand level, left hand, initial encounter; M79.645 Pain in left finger(s); X58.XXXA Exposure to other specified factors, initial encounter
CPT/HCPCS: 73218

== ENCOUNTER → 2023-10-02 09:32 | Outpatient (CLI) | payer MEDICARE, OTHER, SELFPAY ==
[2023-10-02 11:23] LABS: Add Manual Diff / Slide Review NO; Basophils Absolute Auto 0 /uL (0-100); Basophils Percent Auto 0.8 % (0-2); Eosinophils Absolute Auto 100 /uL (0-450); Hematocrit 40.6 % (36-46); Hemoglobin 13.7 g/dL (12.0-16.0); Lymphocytes Absolute Auto 1500 /uL (1100-4500); Lymphocytes Percent Auto 38.7 % (25-40); Mean Corpuscular HGB Conc 33.8 % (30-36); Mean Corpuscular Hemoglobin 31.8 PG (26-34); Mean Corpuscular Volume 94.1 fL (80-100); Monocytes Absolute Auto 400 /uL (0-900); Monocytes Percent Auto 9.2 % (3-14); Neutrophils Absolute Auto 1900 /uL (1500-7000); Neutrophils Percent Auto 49.3 % (50-75); Platelet Count 259 X10^3/uL (150-400); Red Blood Cell Count 4.32 X10^6/uL (4.0-5.2); Red Cell Distribution Width 13.7 % (11.6-14.8); White Blood Cell Count 3.9 X10^3/uL (4.5-11.0)
[2023-10-02 11:32] LABS: HEMOLYSIS < 15 (0-50)
[2023-10-02 11:37] LABS: Alanine Aminotransferase 18 IU/L (<35); Albumin 4.2 g/dL (3.5-5.0); Albumin Globulin Ratio 1.4 (1.0-2.8); Alkaline Phosphatase 64 U/L (38-126); Aspartate Aminotransferase 27 IU/L (14-36); BUN Creatinine Ratio 13.4 (6-22); Bilirubin Total 0.8 mg/dL (0.2-1.3); Blood Urea Nitrogen 11 mg/dL (7-17); Calcium 9.4 mg/dL (8.4-10.2); Carbon Dioxide 26 mmol/L (22-32); Chloride 106 mmol/L (98-107); Cholesterol 215 mg/dL (140-199); Estimated Glomerular Filt Rate > 60 mL/min (>60); Glucose 94 mg/dL (80-110); HDL Cholesterol 86 mg/dL (40-60); LDL Cholesterol Calculated 114 mg/dL (<100); Potassium 4.7 mmol/L (3.4-5.1); Sodium 139 mmol/L (137-145); Total Protein 7.2 g/dL (6.3-8.2); Triglycerides 75 mg/dL (35-150)
[2023-10-23 12:14] LABS: Miscellaneous to LabCorp 1.79
== END ==
PROVIDERS: PCP Family Medicine; Referring Provider Family Medicine; Visit Provider Family Medicine
DX: Z00.00 Encounter for general adult medical examination without abnormal findings (principal); E78.5 Hyperlipidemia, unspecified; R94.31 Abnormal electrocardiogram [ECG] [EKG]; N95.1 Menopausal and female climacteric states
CPT/HCPCS: 36415; 80053; 80061; 85025

== ENCOUNTER → 2025-02-19 10:03 | Outpatient (CLI) | payer MEDICARE, OTHER, SELFPAY ==
[2025-02-19 11:32] LABS: Alanine Aminotransferase 21 IU/L (<35); Albumin 4.6 g/dL (3.5-5.0); Albumin Globulin Ratio 1.6 (1.0-2.8); Alkaline Phosphatase 74 U/L (38-126); Blood Urea Nitrogen 17 mg/dL (7-17); Calcium 9.3 mg/dL (8.4-10.2); Carbon Dioxide 26 mmol/L (22-32); Chloride 106 mmol/L (98-107); Cholesterol 218 mg/dL (140-199); Estimated Glomerular Filt Rate > 60 mL/min (>60); Globulin 2.9 g/dL (1.7-4.1); Glucose 88 mg/dL (70-99); HDL Cholesterol 78 mg/dL (40-60); HEMOLYSIS < 15 (0-50); Potassium 4.4 mmol/L (3.4-5.1); Sodium 138 mmol/L (137-145); Total Protein 7.5 g/dL (6.3-8.2); Triglycerides 71 mg/dL (35-150)
[2025-02-19 12:10] LABS: TSH w/ Reflex to FT4 1.61 uIU/mL (0.47-4.68)
[2025-02-20 04:12] LABS: CRP, High Sensitivity 0.87 mg/L (0.00-3.00)
== END ==
PROVIDERS: PCP Family Medicine; Referring Provider Family Medicine; Visit Provider Family Medicine
DX: E78.00 Pure hypercholesterolemia, unspecified (principal); D72.810 Lymphocytopenia; R94.31 Abnormal electrocardiogram [ECG] [EKG]
CPT/HCPCS: 36415; 80053; 80061; 84443; 86140

== ENCOUNTER → 2025-05-06 11:41 | Outpatient (CLI) | payer MEDICARE, OTHER, SELFPAY ==
--- NOTE | 2025-05-06 11:42 | DI.RAD.S_ITS ---
PROCEDURE: XR DEXA AXIAL SKELETON INDICATIONS: compare to 2019 COMPARISON: [facility], CR, XR DEXA AXIAL SKELETON, 01/08/2019, 14:32. FINDINGS: Lumbar Spine: Bone mineral density 1.498 g/cm2, T score 3.8. There is interval 1.8% increase in total lumbar spine bone mineral density. Left Femoral Neck: Bone mineral density 0.918 g/cm2, T score 0.6. There is interval 1.2% decrease in left femoral neck bone mineral density. Left Hip: Bone mineral density 1.063 g/cm2, T score 1.0. There is interval 1.5% increase in total left hip bone mineral density. Fracture Risk Calculation (when applicable): 10-year fracture risk of a major osteoporotic fracture 6.3 percent and of a hip fracture 0.2 percent. (T score greater or equal to -1.0 to: NORMAL) (T score from -1.1 to -2.4: OSTEOPENIA) (T score less than or equal to -2.5: OSTEOPOROSIS) IMPRESSION: Normal bone mineral density. Follow-up guidelines as follows: Osteoporosis: Consider a repeat DEXA and Vertebral Fracture Assessment (VFA) exam in 2 years or sooner if medically necessary, to reassess this patient's status. Osteopenia: Consider a repeat DEXA in 2-3 years to reassess this patient's status, or if there is a new clinical indication. Normal: Consider a repeat DEXA in 5 years or sooner, or if there is a new clinical indication. All treatment decisions require clinical judgment and consideration of individual patient factors, including patient preferences, comorbidities, previous drug use, risk factors not captured in the FRAX model (e.g., frailty, falls, vitamin D deficiency, increased bone turnover, interval significant decline in bone density ) and possible under- or over-estimation of fracture risk by FRAX. In addition, the NOF Guide recommends that FDA-approved medical therapies be considered in postmenopausal women and men age >= 50 years with a: * Hip or vertebral (clinical or morphometric) fracture * T-score of <=-2.5 at the spine or hip * Ten-year fracture probability by FRAX of >= 3% for hip fracture or >=20% for major osteoporotic fracture. Dictated by: Bautista Pal M.D. on 05/06/2025 at 15:48 Approved by: Bautista Pal M.D. on 05/06/2025 at 15:54
== END ==
PROVIDERS: PCP Family Medicine; Referring Provider Family Medicine; Visit Provider Family Medicine
DX: M81.0 Age-related osteoporosis without current pathological fracture (principal)
CPT/HCPCS: 77080